=== PATIENT | male | born 1965 | race Caucasian/White ===

== ENCOUNTER 2025-10-10 04:15 | Emergency (ER) | payer MEDICARE ==
[~2025-10-10] VITALS: Ht 177.8 cm; Wt 73.0 kg
[2025-10-10 04:17] VITALS: O2SAT 98
[2025-10-10 05:11] VITALS: BP 126/68; PULSE 79; RESP 16; TEMP 36.8; O2SAT 99
[2025-10-10] MEDS: ACETAMINOPHEN 500MG TABLET PO ONE (05:11)
[2025-10-10] MEDS ORDERED: TERB30CR8 TP (05:27)
== END 2025-10-10 05:40 | disposition home or self-care (01) ==
LOC: ER 04:15
DX: B35.1 Tinea unguium (principal); Z88.0 Allergy status to penicillin
CPT/HCPCS: 99283